=== PATIENT | female | born 1965 | race Caucasian/White ===

== ENCOUNTER 2024-05-17 19:49 | Emergency (ER) | payer BC ==
[~2024-05-17] VITALS: Ht 165.1 cm; Wt 75.7 kg
[2024-05-17] MEDS ORDERED: predniSONE 20 MG TABLET ONE (20:08)
[2024-05-17] MEDS: predniSONE 20 MG TABLET PO ONE (20:13)
[2024-05-17] MEDS ORDERED: ALBU18HF2 INH (20:14)
[2024-05-17] MEDS ORDERED: PRED20TA PO (20:14)
[2024-05-17] MEDS ORDERED: LEVO750T46 PO (20:14)
[2024-05-17] MEDS ORDERED: IPRATROPIUM NEB FS 0.5 MG/2.5 ML AMPUL.NEB ONE (20:24)
[2024-05-17] MEDS ORDERED: ALBUTEROL FS 2.5 MG/3 ML VIAL.NEB ONE (20:24)
[2024-05-17 20:26] VITALS: O2SAT 96
[2024-05-17] MEDS: ALBUTEROL FS 2.5 MG/3 ML VIAL.NEB NEB ONE (20:29)
[2024-05-17] MEDS: IPRATROPIUM NEB FS 0.5 MG/2.5 ML AMPUL.NEB NEB ONE (20:29)
[2024-05-17 20:40] VITALS: O2SAT 94
[2024-05-17 21:07] VITALS: BP 149/84; TEMP 97.6; O2SAT 94
== END 2024-05-17 21:08 | disposition home or self-care (01) ==
LOC: ER 19:56
DX: J44.1 Chronic obstructive pulmonary disease with (acute) exacerbation (principal); R09.89 Other specified symptoms and signs involving the circulatory and respiratory systems; Z79.52 Long term (current) use of systemic steroids; Z88.0 Allergy status to penicillin; Z88.1 Allergy status to other antibiotic agents; Z88.2 Allergy status to sulfonamides; Z88.5 Allergy status to narcotic agent; Z88.6 Allergy status to analgesic agent
CPT/HCPCS: 99283; 94640; J7512

== ENCOUNTER 2024-05-28 10:32 | Emergency (ER) | payer BC ==
[~2024-05-28] VITALS: Ht 165.1 cm; Wt 65.8 kg
[~2024-05-28 10:32] MED LIST: ALBU18HF2 INH; LEVO750T46 PO; PRED20TA PO
[2024-05-28 10:35] VITALS: TEMP 98.1
[2024-05-28] MEDS ORDERED: KETOROLAC TROMETHAMINE 15 MG/ML VIAL ONE ×2 (11:03→13:03)
[2024-05-28] MEDS: KETOROLAC TROMETHAMINE 15 MG/ML VIAL IV ONE ×2 (11:14→13:05)
[2024-05-28] MEDS: IV NS 0.9% 500 ML BAG IV ONE (11:15)
[2024-05-28 11:19] LABS: BASOPHILS % (AUTO) 0.5 % (0.0-2.0); EOSINOPHILS # (AUTO) 0.3 K/uL (0.0-0.7); EOSINOPHILS % (AUTO) 3.2 % (0.0-6.0); HEMATOCRIT 38 % (33-45); HEMOGLOBIN 12.6 g/dL (11.5-14.8); LYMPHOCYTES # (AUTO) 3.1 K/uL (0.8-4.8); LYMPHOCYTES % (AUTO) 39.5 % (20.0-44.0); MEAN CORPUSCULAR HEMOGLOBIN 29 PG (26.0-33.0); MEAN CORPUSCULAR HGB CONC 33 g/dl (31.0-36.0); MEAN CORPUSCULAR VOLUME 90 fL (82-100); MONOCYTES # (AUTO) 0.5 K/uL (0.1-1.30); NEUTROPHILS # (AUTO) 3.9 K/uL (1.8-8.9); NEUTROPHILS % (AUTO) 49.8 % (43.0-81.0); PLATELET COUNT (AUTO) 270 K/uL (150-450); RED BLOOD CELL COUNT(AUTO) 4.29 MIL/uL (4.0-5.2); WHITE BLOOD COUNT (AUTO) 7.7 K/uL (4.3-11.0)
[2024-05-28 11:33] LABS: D-DIMER 0.26 mg/L(FEU (0.17-0.50); INR 0.9 (0.91-1.10); PARTIAL THROMBOPLASTIN TIME 23.9 SEC (24.3-34.3); PROTHROMBIN TIME 9.6 SECS (9.2-11.1)
[2024-05-28 11:44] LABS: CALCIUM, SERUM 8.5 mg/dL (8.5-10.1); CREATININE 0.8 mg/dL (0.6-1.3)
[2024-05-28] MEDS ORDERED: NAPR-1164 PO (12:57)
[2024-05-28 13:31] VITALS: BP 120/73; O2SAT 100
== END 2024-05-28 13:15 | disposition home or self-care (01) ==
LOC: ER 10:35
DX: S29.011A Strain of muscle and tendon of front wall of thorax, initial encounter (principal); J44.89 Other specified chronic obstructive pulmonary disease; F17.200 Nicotine dependence, unspecified, uncomplicated; Z79.52 Long term (current) use of systemic steroids; Z88.0 Allergy status to penicillin; Z88.1 Allergy status to other antibiotic agents; Z88.2 Allergy status to sulfonamides; Z88.5 Allergy status to narcotic agent; Z88.6 Allergy status to analgesic agent
CPT/HCPCS: 99285; 96374; 71045; 93005; 96376; 85025; 80048; 85378; 36415; 85730; J7040; J1885 ×2

== ENCOUNTER 2024-05-31 01:31 | Emergency (ER) | payer BC ==
[~2024-05-31] VITALS: Ht 165.1 cm; Wt 65.8 kg
[~2024-05-31 01:31] MED LIST changes: +NAPR-1164 PO
[2024-05-31] MEDS ORDERED: ACETAMINOPHEN 325 MG TABLET ONE (01:52)
[2024-05-31] MEDS: ACETAMINOPHEN 325 MG TABLET PO ONE (01:54)
[2024-05-31] MEDS ORDERED: AZIT250T13 PO (02:39)
[2024-05-31] MEDS ORDERED: AZITHROMYCIN 250 MG TABLET PO ONE (03:00)
[2024-05-31 03:40] VITALS: BP 157/93; TEMP 97.9; O2SAT 97
== END 2024-05-31 03:40 | disposition home or self-care (01) ==
LOC: ER 01:32
DX: J32.9 Chronic sinusitis, unspecified (principal); J44.89 Other specified chronic obstructive pulmonary disease; Z20.822 Contact with and (suspected) exposure to COVID-19; F17.200 Nicotine dependence, unspecified, uncomplicated; Z79.52 Long term (current) use of systemic steroids; Z88.0 Allergy status to penicillin; Z88.1 Allergy status to other antibiotic agents; Z88.2 Allergy status to sulfonamides; Z88.5 Allergy status to narcotic agent; Z88.6 Allergy status to analgesic agent
CPT/HCPCS: 86403-TC; 87070-TC